=== PATIENT | male | born 1990 | race Two or more races ===

== ENCOUNTER 2025-06-30 14:13 | Emergency (ER) | payer OTHER, MEDICAID, SELFPAY ==
[2025-06-30 14:15] VITALS: BMI 22.1
[2025-06-30 15:17] VITALS: BP 128/87; PULSE 75; RESP 16; TEMP 37.3; O2SAT 98
--- NOTE | 2025-06-30 15:48 | EKG_ITS ---
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
--- NOTE | 2025-06-30 15:49 | PD.EDRME ---
Rapid Medical Screening Exam RME Arrival date/time: 06/30/25 14:13 This is a 35-year-old male that comes in with complaints of feeling weak and feeling like he is in a pass out. Patient states he recently was seen at the clinic and was told that he had anemia. Patient states that they did a lot of blood work but he has not got the results yet. Patient reports abdominal pain and feeling nauseous. Patient not able to elaborate on his dizziness symptoms but just feels like he is going to fall when he stands up. Patient denies alcohol drug use. Patient denies anxiety however states that has had an anxiety attack. I have greeted and performed a focused initial assessment of this patient. Initial appropriate labs ordered at this time. A comprehensive ED assessment and evaluation of the patient and analysis of all test and completion of medical decision making process will be conducted by additional ED provider. Chief Complaint: Dizziness Time Seen by Provider: 06/30/25 14:33 Vital signs: Vital Signs Temperature 99.1 F 06/30/25 15:17 Pulse Rate 75 06/30/25 15:17 Respiratory Rate 16 06/30/25 15:17 Blood Pressure 128/87 H 06/30/25 15:17 Pulse Oximetry (%) 98 06/30/25 15:17 Oxygen Delivery Method Room Air 06/30/25 15:17
[2025-06-30] MEDS: MECLIZINE HCL 25 MG TABLET PO (15:55)
[2025-06-30] MEDS: ONDANSETRON ODT 4 MG TABRAP PO (15:56)
[2025-06-30 16:42] LABS: Basophils # (Auto) 0.0 Thou/mm3 (0.0-0.2); Basophils % (Auto) 0 % (0-2.5); Eosinophils # (Auto) 0.0 Thou/mm3 (0.0-0.5); Eosinophils % (Auto) 0 % (0-10); Hematocrit 49.1 % (41.0-53.0); Hemoglobin 16.5 g/dL (13.5-16.0); Immature Granulocytes Auto 0.02 Thou/mm3 (0.00-0.00); Lymphocytes # (Auto) 1.8 Thou/mm3 (1.0-4.8); Lymphocytes % (Auto) 21 % (10-50); Mean Corpuscular HGB Conc 33.6 g/dl (31.0-37.0); Mean Corpuscular Hemoglobin 28.5 pg (25.0-35.0); Mean Corpuscular Volume 85 fL (80-100); Monocytes # (Auto) 0.3 Thou/mm3 (0.0-0.8); Monocytes % (Auto) 4 % (0-12); Neutrophils # (Auto) 6.3 Thou/mm3 (1.8-7.7); Neutrophils % (Auto) 75 % (37-80); Nucleated Red Blood Cell # 0.00 Thou/mm3 (0.00-0.00); Nucleated Red Blood Cell % 0 /100 WBC (0); Platelet Count 225 Thou/mm3 (140-440); RDW Standard Deviation 38.1 fL (35.1-43.9); Red Blood Count 5.78 Miln/mm3 (4.50-5.90); White Blood Count 8.5 Thou/mm3 (3.8-10.6)
[2025-06-30 16:48] LABS: Collection Type, Urine Voided
[2025-06-30 16:50] LABS: Alanine Aminotransferase 26 U/L (10-49); Albumin, Serum 4.9 gm/dL (3.5-5.0); Albumin/Globulin Ratio 1.6 (1.2-2.2); Alkaline Phosphatase 106 U/L (46-116); Anion Gap 11 (7-16); Aspartate Amino Transferase 26 U/L (0-34); BUN/Creatinine Ratio 8 Ratio (12-20); Bilirubin,Total 0.4 mg/dL (0.3-1.2); Blood Urea Nitrogen 8 mg/dL (9-23); Calcium 9.7 mg/dL (8.3-10.6); Calcium (Corrected) 9.7 mg/dL (8.5-10.1); Carbon Dioxide 26.3 mMol/L (20.0-31.0); Chloride 105 mMol/L (98-107); Creatinine (Component) 1.0 mg/dL (0.6-1.3); Estimated Creatinine Clearance 101.1 mL/min (>60); Globulin 3.1 gm/dL (2.3-3.5); Glucose 89 mg/dL (74-106); Lipase 38 U/L (12-53); Osmolality,Calculated 280 (275-295); Potassium 4.1 mMol/L (3.4-5.1); Sodium 142 mMol/L (136-145); Total Protein 8.0 gm/dL (5.7-8.2); eGFR > 60 See Note
[2025-06-30 16:56] LABS: Bilirubin,Urine Negative (Negative); Blood,Urine Negative (Negative); Clarity,Urine Clear (Clear/Hazy); Color,Urine Yellow (Lt Yel-Yel); Culture Indicated,Urine Not Indicated; Glucose, Urine Negative (Negative); Ketones,Urine Negative (Negative); Leukocyte Esterase,Urine Negative (Negative); Nitrite,Urine Negative (Negative); PH,Urine 6.0 (5.0-7.0); Protein,Urine Negative (Neg - Trace); RBC,Urine 1 /hpf (0-3); Specific Gravity,Urine 1.022 (1.001-1.035); Squamous Epithelial Cell,Urine < 1 /hpf (0-5); Urobilinogen,Urine Negative mg/dL (0.0-1.0); WBC,Urine < 1 /hpf (0-5)
[2025-06-30 17:14] LABS: Amphetamine/Methamp Scrn,U Negative (Negative); Barbiturate Screen,Urine Negative (Negative); Benzodiazepines Screen,Urine Negative (Negative); Benzoylecgonine Screen, Ur Negative (Negative); Fentanyl Screen,Urine Negative (Negative); Opiate Screen,Urine Negative (Negative); THC Screen,Urine Negative (Negative)
--- NOTE | 2025-06-30 18:05 | EDNOTE_ITS ---
ED General RME/HPI General Chief complaint: Dizziness Stated complaint: DIZZY, NAUSEA WITH HEAVY FEELING ON FEET X2 DAY Time Seen by Provider: 06/30/25 14:33 Arrival date/time: 06/30/25 14:13 RME / HPI RME / HPI narrative: 06/30/25 14:13 Sacha is a 35 y/o male wit past medical history ? Anxiety who comes in for an evaluation of feeling weak when standing up with associated nausea and presyncopal feeling. Patient reports that this never happened to him before no one around him is feeling like this. He does report that he was at work (he works in the [employer]). He does not state that he feels dehydrated and felt like he was going to pass out, however did not. He also said he does not feel like he is having anxiety attack, however says that he has some blurry vision bilaterally, but denies ear pain or eye pain. He states that the meclizine and Zofran that was given to him has helped him a little bit. He does state that he has had low blood pressure when measured standing up at home as low as 60 systolic. Denies any trauma to his body. No other complaints this time. Related Data Previous Rx's ?Medication ?Instructions ?Recorded acetaminophen 500 mg tablet 1,000 mg (2 x 500 mg) PO Q 6H PRN 11/07/23 (Tylenol Extra Strength) fever or pain #30 tabs Allergies Allergy/AdvReac Type Severity Reaction Status Date / Time peach Allergy Severe Hives Verified 06/30/25 14:20 Review of Systems Review of Systems Narrative Review of Systems: Constitutional: No fever, chills, fatigue, + weakness, no weight loss HEENT: No eye pain, vision loss, ear pain, hearing loss, dysphagia, Cardiovascular: No chest pain, palpitations, edema, pain with walking Respiratory: No cough, shortness of breath, wheezing GI: +nausea, no vomiting, diarrhea, abdominal pain, constipation, blood in stool, loss of appetite, heartburn Extremities: No presence of pitting edema MSK: No back pain, joint pain, joint swelling Neuro: No dizziness, numbness, weakness, headaches, seizures, tremors Psych: No anxiety, depression ED Exam Narrative Physical exam: General: AAOx3, NAD, HEENT: Moist mucous membranes, conjunctiva clear, EOMI, PERRLA, slight erythema in ear canal bilaterally, however tympanic membrane visualized and no perforation or edema bilaterally. Cardiovascular: S1, S2, radial pulses +2 bilat, RRR Pulmonary: CTAB bilat no cough, no wheezing GI: No tenderness to light or deep palpitation, no guarding, rigidity, rebound tenderness or distension Extremities: No presence of trace or pitting edema in lower extremities bilaterally, dorsalis pedis pulses +2 bilaterally Neuro: AAOx3, no focal motor or sensory deficits in the UE or LE bilat, Emmanuel maneuver negative Psych: Good judgement, thought and behavior Course Quality Measures none Orders Category Date Time Status EKG (ED ONLY) *Do not use* NOW Care 06/30/25 15:48 Completed Orthostatic Vitals NOW Care 06/30/25 18:24 Active Orthostatic Vitals NOW Care 06/30/25 18:55 Active EKG (ED Only) Stat Exams 06/30/25 15:48 Draft CBC Stat Lab 06/30/25 16:01 Completed Comprehensive Metabolic Panel Stat Lab 06/30/25 16:01 Completed Drug Screen,Urine Stat Lab 06/30/25 16:35 Completed Lipase Stat Lab 06/30/25 16:01 Completed Urinalysis, C/S if Indicated Stat Lab 06/30/25 16:35 Completed Meclizine HCl [Antivert] Med 06/30/25 15:48 Discontinued 25 mg PO X1 ONE Ondansetron Odt [Zofran Odt] Med 06/30/25 15:49 Discontinued 4 mg PO X1 ONE Vital Signs Vital signs: Vital Signs Temperature 99.1 F 06/30/25 15:17 Pulse Rate 75 06/30/25 15:17 Respiratory Rate 16 06/30/25 15:17 Blood Pressure 128/87 H 06/30/25 15:17 Pulse Oximetry (%) 98 06/30/25 15:17 Oxygen Delivery Method Room Air 06/30/25 15:17 Discharge Plan Plan Patient Disposition: HOME (Self Care) Patient condition on transfer: Stable Prescriptions/Referrals Prescriptions/Med Rec: No Action acetaminophen [Tylenol Extra Strength] 500 mg tablet 1,000 mg PO Q6H PRN (Reason: fever or pain) Qty: 30 0RF Referrals: No Primary/Family,Physician [Primary Care Provider] - In 1 week Problem List Clinical Impression: Benign paroxysmal positional vertigo, Lightheaded Patient/Caregiver Discharge Instructions Discharge Activity: activity as tolerated Additional Instructions: Discharge instructions Follow-up with your PCP within 1 week Patient will need to follow-up with PCP for evaluation of anxiety or further orthostatic hypotension testing with possible tilt table test. 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 El paciente deber? realizar mulugeta consulta de seguimiento con castañeda m?dico de cabecera para evaluar la ansiedad o realizar pruebas adicionales de hipotensi?n ortost?damián, con posible prueba de aviles basculante. Tambi?n podr?a ser conveniente repetir la prueba de v?rtigo con castañeda m?dico de cabecera. Le recomiendo que se mantenga hidratado, especialmente si trabaja al aire lubna. [place] medicamentos seg?n lo prescrito. Regrese a urgencias si los s?ntomas empeoran o reaparecen. Print Language: Eritrean Stand Alone Forms: Ashley Award Info., Patient Portal Info Letter MDM Narrative MDM hospital course (for use when minimal MDM required): 1829: Labs reviewed, other than erythrocytosis of hemoglobin 16.5, labs are normal including sodium, creatinine, lipase negative, urinalysis and urine drug screen negative. Will order orthostatic vitals at this time. 1919: Orthostatic vitals reviewed, seen increase in BP, will reorder orthostatic vitals. 2010: Repeat orthostatic vitals reviewed, patient is medically cleared for discharge. Patient will need to follow-up with PCP for evaluation of anxiety or further orthostatic hypotension testing with possible tilt table test. EKG Interpretation EKG #1: EKG Interpretation: Sinus rhythm, rate of 85, QT 400 Medication Administration(s) Medication Administration History Discontinued Medications Meclizine HCl (Meclizine Hcl 25 Mg Tablet) 25 mg PO X1 ONE Stop: 06/30/25 15:49 Last Admin: 06/30/25 15:55 Dose: 25 mg Documented By: ISAK Ondansetron HCl (Ondansetron Odt 4 Mg Tabrap) 4 mg PO X1 ONE; Protocol Stop: 06/30/25 15:50 Last Admin: 06/30/25 15:56 Dose: 4 mg Documented By: ISAK Diagnosis Diagnoses ruled out and/or further discussions: Orthostatic hypotension, dehydration, BPPV
[2025-06-30 18:42] VITALS: BP 127/78; BP 132/85; BP 135/84; PULSE 71; PULSE 74; PULSE 76
[2025-06-30 19:23] VITALS: BP 118/76; BP 123/86; BP 127/84; PULSE 62; PULSE 67; PULSE 75
[2025-06-30 19:53] VITALS: BP 117/75; PULSE 62; RESP 18; TEMP 36.5; O2SAT 98
[2025-06-30 20:25] VITALS: RESP 16
== END 2025-06-30 20:26 | disposition home or self-care (01) ==
PROVIDERS: Nurse Practitioner Family; Emergency Provider Emergency Medicine
DX: H81.10 Benign paroxysmal vertigo, unspecified ear (principal)
CPT/HCPCS: 36415; 80053; 80307; 81001; 83690; 85025; 93005; 99284; Q0162; A9270

== ENCOUNTER 2025-08-03 13:29 | Emergency (ER) | payer OTHER, MEDICAID, SELFPAY ==
[2025-08-03 13:31] VITALS: BMI 22.3
[2025-08-03 13:55] VITALS: BP 128/85; PULSE 95; RESP 20; TEMP 36.4; O2SAT 97; BMI 22.3
--- NOTE | 2025-08-03 14:16 | XR_ITS ---
Examination: CT brain head without contrast. 2-D sagittal coronal reconstructions Date and time of exam: Generalized headache, intermittent for 1 month CTDI: vol (mGy): 45.7 DLP: (mGycm): 924 Technique: Multiple CT axial sections of the brain have been obtained, 5 mm slice thickness. Contrast has not been administered. 2-D sagittal, coronal reconstructions have been obtained Low dose protocols were performed. One or more of the following dose reduction techniques were used; automated exposure control, adjustment of the mA and/or KV according to patient size, use of iterative reconstruction technique. FINDINGS: BRAIN PARENCHYMA: The brain parenchyma appears normal for age. Comer-white matter junctions are intact; no evidence for acute transcortical ischemic infarction. No intraparenchymal hemorrhage, discrete mass or midline shift. No cerebellar tonsillar ectopia. No apparent acute abnormality of the cerebellum. VENTRICLES / EXTRA-AXIAL SPACES: No hydrocephalus, extra-axial hematoma or mass. CALVARIUM: No skull fracture or concerning focal lesion. SINUSES: Probable small mucous retention cysts in both maxillary sinuses along the medial costa. Otherwise, no severe diffuse mucosal hypertrophy, sinus opacification or fluid levels. The visualized mastoid air cells are clear. OTHER EXTRACRANIAL STRUCTURES: No findings of acute significance. IMPRESSION: Negative noncontrast head CT for acute intracranial abnormality. No specific findings identified to explain for cephalgia.
--- NOTE | 2025-08-03 14:16 | EKG_ITS ---
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
--- NOTE | 2025-08-03 14:17 | PD.EDRME ---
Rapid Medical Screening Exam ON LICENSE OF [facility] Arrival date/time: 08/03/25 13:29 35-year-old male with no known medical history presents to the emergency room with a chief complaint of a 10 out of 10 headache, dizziness, blurry vision x 1 month. Patient states he has had 3 visits with his primary care provider and his symptoms have progressively gotten worse I have greeted and performed a focused initial assessment of this patient. A comprehensive ED assessment and evaluation of the patient, analysis of all test results, and completion of the medical decision making process will be conducted by additional ED providers. Chief Complaint: Headache Time Seen by Provider: 08/03/25 13:57 Vital signs: Vital Signs Temperature 97.5 F 08/03/25 13:55 Pulse Rate 95 08/03/25 13:55 Respiratory Rate 20 08/03/25 13:55 Blood Pressure 128/85 H 08/03/25 13:55 Pulse Oximetry (%) 97 08/03/25 13:55 Oxygen Delivery Method Room Air 08/03/25 13:55 Vital signs reviewed by provider: Yes Exam: GCS of 15, pupils are PERRLA EOMs are intact Clear bilateral lung sounds strong and regular rhythm S1 and S2 noted Clinical Impression: Headache/migraine/brain mass
[2025-08-03 14:33] LABS: Basophils # (Auto) 0.0 Thou/mm3 (0.0-0.2); Basophils % (Auto) 0 % (0-2.5); Eosinophils # (Auto) 0.1 Thou/mm3 (0.0-0.5); Eosinophils % (Auto) 1 % (0-10); Hematocrit 45.2 % (41.0-53.0); Hemoglobin 15.3 g/dL (13.5-16.0); Immature Granulocytes Auto 0.02 Thou/mm3 (0.00-0.00); Lymphocytes # (Auto) 2.5 Thou/mm3 (1.0-4.8); Lymphocytes % (Auto) 27 % (10-50); Mean Corpuscular HGB Conc 33.8 g/dl (31.0-37.0); Mean Corpuscular Hemoglobin 28.3 pg (25.0-35.0); Mean Corpuscular Volume 84 fL (80-100); Monocytes # (Auto) 0.4 Thou/mm3 (0.0-0.8); Monocytes % (Auto) 4 % (0-12); Neutrophils # (Auto) 6.2 Thou/mm3 (1.8-7.7); Neutrophils % (Auto) 67 % (37-80); Nucleated Red Blood Cell # 0.00 Thou/mm3 (0.00-0.00); Nucleated Red Blood Cell % 0 /100 WBC (0); Platelet Count 214 Thou/mm3 (140-440); RDW Standard Deviation 37.2 fL (35.1-43.9); Red Blood Count 5.40 Miln/mm3 (4.50-5.90); White Blood Count 9.1 Thou/mm3 (3.8-10.6)
[2025-08-03] MEDS: ACETAMINOPHEN 500 MG TABLET 1000 MG PO (14:40)
[2025-08-03 14:49] LABS: B-Type Natriuretic Peptide < 20 pg/mL (0-100)
[2025-08-03 14:50] LABS: Alanine Aminotransferase 41 U/L (10-49); Albumin, Serum 4.9 gm/dL (3.5-5.0); Albumin/Globulin Ratio 1.9 (1.2-2.2); Alkaline Phosphatase 100 U/L (46-116); Anion Gap 8 (7-16); Aspartate Amino Transferase 26 U/L (0-34); BUN/Creatinine Ratio 9 Ratio (12-20); Bilirubin,Total 0.4 mg/dL (0.3-1.2); Blood Urea Nitrogen 9 mg/dL (9-23); Calcium 9.4 mg/dL (8.3-10.6); Calcium (Corrected) 9.4 mg/dL (8.5-10.1); Carbon Dioxide 28.1 mMol/L (20.0-31.0); Chloride 105 mMol/L (98-107); Creatinine (Component) 1.0 mg/dL (0.6-1.3); Estimated Creatinine Clearance 101.8 mL/min (>60); Globulin 2.6 gm/dL (2.3-3.5); Glucose 86 mg/dL (74-106); Osmolality,Calculated 278 (275-295); Potassium 4.2 mMol/L (3.4-5.1); Sodium 141 mMol/L (136-145); Total Protein 7.5 gm/dL (5.7-8.2); Troponin I < 0.002 ng/mL (0.0-0.045); eGFR > 60 See Note
[2025-08-03 14:58] LABS: Collection Type, Urine Clean Catch; Squamous Epithelial Cell,Urine 0 /hpf (0-5)
[2025-08-03 15:05] LABS: Bilirubin,Urine Negative (Negative); Blood,Urine Negative (Negative); Clarity,Urine Clear (Clear/Hazy); Color,Urine Colorless (Lt Yel-Yel); Culture Indicated,Urine Not Indicated; Glucose, Urine Negative (Negative); Ketones,Urine Negative (Negative); Leukocyte Esterase,Urine Negative (Negative); Nitrite,Urine Negative (Negative); PH,Urine 7.0 (5.0-7.0); Protein,Urine Negative (Neg - Trace); RBC,Urine 1 /hpf (0-3); Specific Gravity,Urine 1.010 (1.001-1.035); Urobilinogen,Urine Negative mg/dL (0.0-1.0); WBC,Urine < 1 /hpf (0-5)
[2025-08-03 15:14] LABS: Amphetamine/Methamp Scrn,U Negative (Negative); Barbiturate Screen,Urine Negative (Negative); Benzodiazepines Screen,Urine Negative (Negative); Benzoylecgonine Screen, Ur Negative (Negative); Fentanyl Screen,Urine Negative (Negative); Opiate Screen,Urine Negative (Negative); THC Screen,Urine Negative (Negative)
--- NOTE | 2025-08-03 15:24 | PD.EDHA ---
ED Headache RME/HPI General Chief Complaint: Headache Stated Complaint: GUERRERO/BLURRED VISION/NAUSEA x 4 DAYS Time Seen by Provider: 08/03/25 13:57 Arrival date/time: 08/03/25 13:29 35-year-old male patient with no past medical history, came in for evaluation regarding dizziness, vertigo, headache, and epigastric pain. This been ongoing for the last few days severity of symptoms moderate. Patient denies any fever denies any trauma to the head denies any vomiting denies any other complaints no medications taken prior to ER visit. RME / HPI RME / HPI Narrative: 08/03/25 13:29 35-year-old male with no known medical history presents to the emergency room with a chief complaint of a 10 out of 10 headache, dizziness, blurry vision x 1 month. Patient states he has had 3 visits with his primary care provider and his symptoms have progressively gotten worse I have greeted and performed a focused initial assessment of this patient. A comprehensive ED assessment and evaluation of the patient, analysis of all test results, and completion of the medical decision making process will be conducted by additional ED providers. Exam: GCS of 15, pupils are PERRLA EOMs are intact Clear bilateral lung sounds strong and regular rhythm S1 and S2 noted Impression: Headache/migraine/brain mass Related Data Previous Rx's ?Medication ?Instructions ?Recorded acetaminophen 500 mg tablet 1,000 mg (2 x 500 mg) PO Q6H PRN 11/07/23 (Tylenol Extra Strength) fever or pain #30 tabs meclizine 50 mg tablet 50 mg PO BID PRN dizziness #20 tabs 08/03/25 pantoprazole 40 mg tablet,delayed 40 mg PO QDAY #20 tabs 08/03/25 release (Protonix) rizatriptan 10 mg tablet (Maxalt) 10 mg PO Q2H PRN migraine headache 08/03/25 #20 tabs Allergies Allergy/AdvReac Type Severity Reaction Status Date / Time peach Allergy Severe Hives Verified 08/03/25 13:37 Review of Systems Review of Systems Narrative Review of Systems: Review of system reviewed and within normal limits except mentioned in HPI ED Exam Narrative Physical exam: VITAL SIGNS: Reviewed. GENERAL APPEARANCE: Alert and interactive, follows commands, no acute distress, HEAD AND FACE: Non-traumatic. ENT: PERRL, pink conjunctivitis, eyelid no trauma, Mucous membrane moist. NECK: Supple, nontender, no nuchal rigidity. CHEST: No tenderness, no crepitus, no paradoxical movement, no retractions. LUNGS: Clear, well ventilated, symmetric, no rales, no wheezing, no ronchi, no stridor, good breath sounds bilaterally. HEART: Regular rate, regular rhythm, no murmur, no gallops. ABDOMEN: Soft, positive bowel sounds, nondistended, no guarding, nontender, no rebound, no masses, RECTAL: Deferred. GENITAL: Deferred. NEUROLOGICAL: Gross motor function intact sensory function intact, Appropriate for age. MUSCULOSKELETAL: low back nontender, full range of motion. EXTREMITIES: Nontender, full range of motion. SKIN: Color pink, dry, no rash, no lacerations, no abrasions, no contusions. LYMPHATICS: Deferred. Course Quality Measures none Orders Category Date Time Status EKG (ED ONLY) *Do not use* NOW Care 08/03/25 14:[address] head/brain wo con Stat Exams 08/03/25 14:16 Completed EKG (ED Only) Stat Exams 08/03/25 14:16 Draft B-Type Natriuretic Peptide Stat Lab 08/03/25 14:23 Completed CBC Stat Lab 08/03/25 14:23 Completed Comprehensive Metabolic Panel Stat Lab 08/03/25 14:23 Completed Drug Screen,Urine Stat Lab 08/03/25 14:40 Completed Troponin I Stat Lab 08/03/25 14:23 Completed Urinalysis, C/S if Indicated Stat Lab 08/03/25 14:40 Completed Acetaminophen Tab [Tylenol ES Tab] Med 08/03/25 14:16 Discontinued 1,000 mg PO X1 ONE Vital Signs Vital signs: Vital Signs Temperature 97.5 F 08/03/25 13:55 Pulse Rate 95 08/03/25 13:55 Respiratory Rate 20 08/03/25 13:55 Blood Pressure 128/85 H 08/03/25 13:55 Pulse Oximetry (%) 97 08/03/25 13:55 Oxygen Delivery Method Room Air 08/03/25 13:55 Headache MDM Narrative MDM Narrative:: 35-year-old male patient with no past medical history, came in for evaluation regarding dizziness, vertigo, headache, and epigastric pain. This been ongoing for the last few days severity of symptoms moderate. Patient denies any fever denies any trauma to the head denies any vomiting denies any other complaints no medications taken prior to ER visit. Patient's workup today including CT scan of the head came back unremarkable. Results discussed with the patient. Patient was given Tylenol significant for headache. I will send this patient home Maxalt, Protonix, and meclizine. Stable for discharge home patient is ambulatory Patient data External records reviewed:: None Clinical information provided by:: none Social determinants that could affect healthcare access:: none Patient has the following chronic illnesses:: None How is presenting disease/condition affected by chronic disease/condition?: no chronic disease Evaluation data The following diagnostics were reviewed and interpreted by me:: lab results and radiology exam(s) Lab and/or radiology exams considered but not ordered:: None Interpretation Summary: EKG as interpreted by me showed normal sinus rhythm, ventricular rate of [address] segment elevation or depression to Medications / Prescriptions Medications or Prescriptions considered but not ordered:: None Medication administrations:: Medication Administration History Discontinued Medications Acetaminophen (Acetaminophen 500 Mg Tablet) 1,000 mg PO X1 ONE Stop: 08/03/25 14:17 Last Admin: 08/03/25 14:40 Dose: 1,000 mg Documented By: [facility] Tylenol Consultations Consultation(s) initiated? (list below): No Diagnosis Differential diagnosis headache: migraine, tension headache and headache Most likely diagnosis given after review of the tests above:: Headache, epigastric pain Admission Indicated Admission indicated?: not indicated Admission Request Was there a request for admission?: No Disposition Plan Disposition Plan: Discharge Discharge Attestation Discharge Attestation: The patient was given an opportunity to ask questions and understood the discharge instructions. Discharge instructions specifically effects, indications for sooner follow up or return to the emergency department, and the expected course of current diagnosis. Patient condition: Stable Discharge Plan Plan Patient Disposition: HOME (Self Care) Discharge Disposition comment: stable Prescriptions/Referrals Prescriptions/Med Rec: New rizatriptan [Maxalt] 10 mg tablet 10 mg PO Q2H PRN (Reason: migraine headache) Qty: 20 0RF Rx Instructions: do not exceed 3 doses per 24 hrs meclizine 50 mg tablet 50 mg PO BID PRN (Reason: dizziness) Qty: 20 0RF pantoprazole [Protonix] 40 mg tablet,delayed release (DR/EC) 40 mg PO QDAY Qty: 20 0RF No Action acetaminophen [Tylenol Extra Strength] 500 mg tablet 1,000 mg PO Q6H PRN (Reason: fever or pain) Qty: 30 0RF Referrals: No Primary/Family,Physician [Primary Care Provider] - In 1 week Problem List Clinical Impression: Headache, Acute epigastric pain Patient/Caregiver Discharge Instructions Discharge Activity: activity as tolerated Education Materials: ED Epigastric Pain (Uncertain Cause) Additional Instructions: Thank you for the opportunity for serving you today. You are stable for discharged . You are advised to: Follow-up with your PCP in 1 to 2 days Return to ED for worsening of symptoms Increase oral fluids Take medication as prescribed Print Language: Peruvian Stand Alone Forms: Ashley Award Info., Patient Portal Info Letter PA/CORE DRIER Supervising Physician RUTH ANN/APRIL Supervising Physician: MD Amairani
== END 2025-08-03 16:10 | disposition home or self-care (01) ==
PROVIDERS: Nurse Practitioner Family
DX: R51.9 Headache, unspecified (principal); R10.13 Epigastric pain
CPT/HCPCS: 36415; 70450; 80053; 80307; 81001; 83880; 84484; 85025; 93005; 99283; A9270